=== PATIENT | male | born 1995 | race Caucasian/White ===

== ENCOUNTER 2019-04-15 09:47 | Emergency (ER) | payer OTHER ==
--- NOTE | 2019-04-15 11:19 | ER Document Report ---
HPI - HPI Patient complains to provider of: bilateral knee pain Time Seen by Provider: 04/15/19 11:11 Onset: Other - 2 weeks Quality of pain: Achy Pain Level: 2 Context: 23-year-old [place] [employer] [place] [place] department with complaints of bilateral knee pain for the past 2 weeks. Reports he is new to this unit at [place] and they have been doing PT with heavy pack on. He reports other day his knees buckled. He reports he did not fall on his knees. He does have an injury to his right knee 8 to 10 years ago. Reports he has been taking ibuprofen without relief of symptoms. He reports he did attempt to see his BAS but they did not have any open appointments. No other complaints such as fever vomiting diarrhea. Associated Symptoms: None Exacerbated by: Walking Relieved by: Denies Similar symptoms previously: Yes Recently seen / treated by doctor: No - EENT EENT: DENIES: Sore Throat, Ear Pain, Eye problems - NEURO Neurology: DENIES: Headache, Weakness, Vision blurred, Dizzinesss / Vertigo - CARDIOVASCULAR Cardiovascular: DENIES: Chest pain - RESPIRATORY Respiratory: DENIES: Trouble Breathing, Coughing - GASTROINTESTINAL Gastrointestinal: DENIES: Abdominal Pain, Black / Bloody Stools - URINARY Urinary: DENIES: Dysuria, Urgency, Frequency - REPRODUCTIVE Reproductive: DENIES: : - MUSCULOSKELETAL Musculoskeletal: REPORTS: Extremity pain Past Medical History - General Information source: Patient - Social History Smoking Status: Never Smoker Frequency of alcohol use: Social Drug Abuse: None [place]ation: [place] [employer] [place] with: Family Family History: None Patient has suicidal ideation: No Patient has homicidal ideation: No Traumatic Medical History: Reports: Hx Fractures - Patella Surgical Hx: Negative Vertical Provider Document - CONSTITUTIONAL Agree With Documented VS: Yes Exam Limitations: No Limitations General Appearance: WD/WN, No Apparent Distress - INFECTION CONTROL TRAVEL OUTSIDE OF THE [place] IN LAST 30 DAYS: No - HEENT HEENT: Atraumatic, Normocephalic - NECK Neck: Supple - RESPIRATORY Respiratory: No Respiratory Distress - CARDIOVASCULAR Cardiovascular: Regular Rate - MUSCULOSKELETAL/EXTREMETIES Musculoskeletal/Extremeties: MAEW, FROM, Tender - Patient reports bilateral knees anterior tender to palpation. No obvious deformity no erythema no swelling no warmth patient can flex extend his leg without any problems - NEURO Level of Consciousness: Awake, Alert, Appropriate Motor/Sensory: No Motor Deficit - DERM Integumentary: Warm, Dry Course - Re-evaluation Re-evalutation: 04/15/19 11:17 Patient instructed on x-ray. He took Motrin at 8:00 and declines any further pain medication at this time. 04/15/19 11:52 Knee X-Ray 04/15/19 11:14 IMPRESSION: No evidence of acute bony abnormality of the left or right knees. No significant degenerative change. 04/15/19 11:55 X-rays negative. Patient was instructed on no degenerative changes no abnormalities. He was instructed follow-up with his BAS take Motrin for the pain. He verbalized understanding to all instructions - Vital Signs Vital signs: Temp Pulse Resp BP Pulse Ox 97.9 F 62 18 141/71 H 99 04/15/19 10:30 04/15/19 10:30 04/15/19 10:30 04/15/19 10:30 04/15/19 10:30 - Diagnostic Test Radiology reviewed: Image reviewed, Reports reviewed Discharge - Discharge Clinical Impression: Bilateral knee pain Qualifiers: Chronicity: unspecified Qualified Code(s): M25.561 - Pain in right knee Condition: Stable Disposition: HOME, SELF-CARE Instructions: Use of [id number] Ibuprofen ([facility]), Ice & Elevation ([facility]) Additional Instructions: *You have been evaluated for bilateral knee pain *Your knee x-rays were negative *Take ibuprofen as indicated for the pain *Rest ice packs to your knees *Follow up with orthopedics within 1 week for recheck *Return to ED for worsening condition, changes, needs Monitor your blood pressure. Your blood pressure was elevated today. This may be because you were anxious, in pain or because you need medication. It is important to follow up with your primary care provider for full evaluation. Forms: Release from PE and Sports, Elevated Blood Pressure
--- NOTE | 2019-04-15 11:48 | RADIOLOGY REPORT (SQ) ---
EXAM DESCRIPTION: KNEE BILATERAL 1-2 VIEWS COMPLETED DATE/TIME: 04/15/2019 11:27 am REASON FOR STUDY: pain, COMPARISON: None. NUMBER OF VIEWS: Two views. TECHNIQUE: AP bilateral knees. LIMITATIONS: None. FINDINGS: MINERALIZATION: Normal. RIGHT KNEE BONES: No acute fracture. No worrisome bone lesions. MEDIAL COMPARTMENT: No significant osteophytes. No joint space narrowing. No chondrocalcinosis. LATERAL COMPARTMENT: No significant osteophytes. No joint space narrowing. No chondrocalcinosis. PATELLOFEMORAL COMPARTMENT: No significant osteophytes. No joint space narrowing. No chondrocalc inosis. LEFT KNEE BONES: No acute fracture. No worrisome bone lesions. MEDIAL COMPARTMENT: No significant osteophytes. No joint space narrowing. No chondrocalcinosis. LATERAL COMPARTMENT: No significant osteophytes. No joint space narrowing. No chondrocalcinosis. PATELLOFEMORAL COMPARTMENT: No significant osteophytes. No joint space narrowing. No chondrocalc inosis. IMPRESSION: No evidence of acute bony abnormality of the left or right knees. No significant degene rative change. TECHNICAL DOCUMENTATION: JOB ID: [id number] 2011 [employer].- All Rights Reserved Reading location - IP/workstation name: [email or web address]
[2019-04-15 11:58] VITALS: BP 131/78
== END 2019-04-15 12:03 | disposition home or self-care (01) ==
LOC: ER 09:47
DX: M25.561 Pain in right knee (principal); M25.562 Pain in left knee